=== PATIENT | male | born 1985 | race African-American/Black ===

== ENCOUNTER 2024-01-06 11:58 | Emergency (ER) | payer MEDICAID ==
[~2024-01-06] VITALS: Ht 175.3 cm; Wt 75.0 kg
[2024-01-06 12:05] VITALS: BP 132/72; PULSE 78; RESP 16; TEMP 97.4; O2SAT 100
[2024-01-06] MEDS ORDERED: IBUP-2029 MT (13:21)
== END 2024-01-06 13:41 | disposition home or self-care (01) ==
LOC: ER 12:09
DX: M25.562 Pain in left knee (principal); G62.9 Polyneuropathy, unspecified
CPT/HCPCS: 73564; 99283